=== PATIENT | female | born 1940 | race Caucasian/White ===

== ENCOUNTER 2017-07-18 13:53 | Emergency (ER) | payer MEDICARE ==
[2017-07-18 14:15] VITALS: BP 124/46
--- NOTE | 2017-07-18 14:34 | ER Document Report ---
ED General - General Chief Complaint: Altered Mental Status Stated Complaint: ALTERED MENTAL STATUS Time Seen by Provider: 07/18/17 14:26 Mode of Arrival: Medic Information source: Patient Notes: This is a 76-year-old female who is a poor historian brought in by EMS after found wandering. Patient is tearful but has no complaints. She is alert but does appear confused. Further history was given by patient's daughter who eventually came to the ER: Patient does have a history of stroke in the past and does have a history of dementia and is at her baseline mental status TRAVEL OUTSIDE OF THE [place] IN LAST 30 DAYS: No - HPI Onset: Just prior to arrival Onset/Duration: Sudden Quality of pain: No pain Severity: None Pain Level: Denies Associated symptoms: None. denies: Fever, Shortness of breath Exacerbated by: Denies Relieved by: Denies Similar symptoms previously: No Recently seen / treated by doctor: No - Related Data Allergies/Adverse Reactions: No Known Allergies Allergy (Verified 11/14/13 10:46) Past Medical History - General Information source: Patient - Social History Smoking Status: Never Smoker Cigarette use (# per day): No Chew tobacco use (# tins/day): No Frequency of alcohol use: None Drug Abuse: None Lives with: Family Family History: Reviewed & Not Pertinent Patient has suicidal ideation: No Patient has homicidal ideation: No - Past Medical History Cardiac Medical History: Reports: Hx Hypercholesterolemia, Hx Hypertension Neurological Medical History: Reports: Hx Cerebrovascular Accident - november 14 2013 right side speech mentation Endocrine Medical History: Reports: Hx Diabetes Mellitus Type 2 Musculoskeltal Medical History: Reports Hx Arthritis, Reports Hx Muscle Spasm, Reports Hx Musculoskeletal Deformity Psychiatric Medical History: Denies: Hx Depression Past Surgical History: Reports: Hx Hysterectomy - Immunizations Immunizations up to date: Yes Hx Diphtheria, Pertussis, Tetanus Vaccination: Yes Hx Pneumococcal Vaccination: 11/23/13 Review of Systems - Review of Systems Constitutional: denies: Chills, Fever EENT: No symptoms reported Cardiovascular: No symptoms reported Respiratory: No symptoms reported Gastrointestinal: No symptoms reported Genitourinary: No symptoms reported Female Genitourinary: No symptoms reported Musculoskeletal: No symptoms reported Skin: No symptoms reported Hematologic/Lymphatic: No symptoms reported Neurological/Psychological: No symptoms reported Physical Exam - Vital signs Vitals: Temp Pulse Resp BP Pulse Ox 98.0 F 79 18 124/46 L 100 07/18/17 14:10 07/18/17 14:10 07/18/17 14:10 07/18/17 14:10 07/18/17 14:10 Notes: Physical exam: GENERAL: A 76-year-old female, alert, sitting up in stretcher, tearful, no acute distress HEAD: Atraumatic, normocephalic. EYES: Pupils equal round and reactive to light, extraocular movements intact, sclera anicteric, conjunctiva are normal. ENT: TMs normal, nares patent, oropharynx clear without exudates. Moist mucous membranes. NECK: Normal range of motion, supple without obvious mass or JVD. LUNGS: Breath sounds clear to auscultation bilaterally and equal. No wheezes rales or rhonchi. HEART: Regular rate and rhythm without murmurs, rubs or gallops. ABDOMEN: Soft, normoactive bowel sounds. No tenderness to palpation. No guarding, no rebound. No masses appreciated. EXTREMITIES: Normal range of motion, no pitting or edema. No clubbing or cyanosis. NEUROLOGICAL: Cranial nerves II through XII grossly intact. Normal speech, moving all extremities. PSYCH: Tearful SKIN: Warm, Dry, normal turgor, no rashes or lesions noted. Course - Re-evaluation Re-evalutation: 07/18/17 22:18 As discussed, the patient is at her baseline mental status. She does have evidence of UTI and we will place her on some oral Keflex. - Vital Signs Vital signs: Temp Pulse Resp BP Pulse Ox 98.0 F 79 18 124/46 L 100 07/18/17 14:10 07/18/17 14:10 07/18/17 14:10 07/18/17 14:10 07/18/17 14:10 - Laboratory Result Diagrams: 07/18/17 14:50 07/18/17 14:50 Laboratory results interpreted by me: 07/18/17 07/18/17 07/18/17 14:03 14:50 14:50 WBC 12.7 H RBC 3.64 L MCV 113 H MCH 37.4 H RDW 16.8 H Plt Count 476 H Seg Neuts % (Manual) 80 H Abs Neuts (Manual) 10.2 H Potassium 5.5 H BUN 39 H Est GFR ( Amer) 53 L Est GFR (Non-Af Amer) 44 L ALT 55 H Ur Leukocyte Esterase LARGE H - EKG Interpretation by Me Rate: Normal Rhythm: NSR - EKG shows normal sinus rhythm with a ventricular rate of 80, no acute ST-T wave changes Discharge - Discharge Clinical Impression: UTI Condition: Stable Disposition: HOME, SELF-CARE Instructions: Urinary Tract Infection ([facility]) Additional Instructions: Recommendations: Encourage fluids for the next 2 days, continue current medicines. See the instruction sheets on UTI: Take the Keflex as prescribed. Follow-up with your doctor in the next 5 days. Her into the ER for any problems. Prescriptions: Cephalexin Monohydrate [Keflex 500 mg Capsule] 500 mg PO QID #20 capsule Referrals: HEMALATHA KENDRICK MD [Primary Care Provider] - Follow up as needed
[2017-07-18 15:08] LABS: HEMATOCRIT 41.2 % (36.0-47.0); HEMOGLOBIN 13.6 g/dL (12.0-15.5); MEAN CORPUSCULAR HEMOGLOBIN 37.4 pg (27.0-33.4); MEAN CORPUSCULAR HGB CONC 33.1 g/dL (32.0-36.0); PLATELET COUNT 476 10^3/uL (150-450); RED BLOOD COUNT 3.64 10^6/uL (3.72-5.28); RED CELL DISTRIBUTION WIDTH 16.8 % (11.5-14.0); WHITE BLOOD COUNT 12.7 10^3/uL (4.0-10.5)
[2017-07-18 15:12] LABS: MEAN CORPUSCULAR VOLUME 113 fl (80-97)
[2017-07-18 15:31] LABS: ABSOLUTE LYMPHOCYTES# (MANUAL) 1.7 10^3/uL (0.5-4.7); ABSOLUTE MONOCYTES # (MANUAL) 0.5 10^3/uL (0.1-1.4); ABSOLUTE NEUTROPHILS# (MANUAL) 10.2 10^3/uL (1.7-8.2); ALANINE AMINOTRANSFERASE 55 U/L (9-52); ALBUMIN 4.4 g/dL (3.5-5.0); ALKALINE PHOSPHATASE 96 U/L (38-126); ANION GAP 12 (5-19); ASPARTATE AMINO TRANSFERASE 29 U/L (14-36); BASOPHILS % (MANUAL) 1 % (0-2); BILIRUBIN,DIRECT 0.1 mg/dL (0.0-0.4); BILIRUBIN,TOTAL 0.5 mg/dL (0.2-1.3); BLOOD UREA NITROGEN 39 mg/dL (7-20); CALCIUM 9.7 mg/dL (8.4-10.2); CARBON DIOXIDE 22 mmol/L (22-30); CHLORIDE 105 mmol/L (98-107); EOSINOPHILS % (MANUAL) 2 % (0-6); GLUCOSE 101 mg/dL (75-110); LYMPHOCYTES % (MANUAL) 13 % (13-45); MONOCYTES % (MANUAL) 4 % (3-13); PLATELET CLUMPS PRESENT; POTASSIUM 5.5 mmol/L (3.6-5.0); SEGMENTED NEUTROPHILS % (MAN) 80 % (42-78); SODIUM 138.9 mmol/L (137-145); TOTAL CELLS COUNTED 100; TOTAL PROTEIN 6.5 g/dL (6.3-8.2); TOXIC GRANULATION SLIGHT
[2017-07-18 15:32] LABS: HYPERSEGMENTED NEUTROPHILS PRESENT; OVALOCYTES 1+; POIKILOCYTOSIS 1+
[2017-07-18 15:45] LABS: APPEARANCE,URINE SLIGHTLY-CLOUDY; BILIRUBIN,URINE NEGATIVE (NEGATIVE); COLOR,URINE YELLOW; GLUCOSE, URINE NEGATIVE (NEGATIVE); KETONES,URINE NEGATIVE (NEGATIVE); LEUKOCYTE ESTERASE,URINE LARGE (NEGATIVE); NITRITE,URINE NEGATIVE (NEGATIVE); PROTEIN,URINE NEGATIVE (NEGATIVE); URINE SPECIFIC GRAVITY 1.012; UROBILINOGEN,URINE NEGATIVE mg/dL (<2.0)
--- NOTE | 2017-07-18 19:23 | EKG REPORT ---
SEVERITY:- ABNORMAL ECG - SINUS RHYTHM IRBBB AND LPFB : Confirmed by: Sunshine Garcia 18-Jul-2017 19:22:02
[2017-07-19 15:26] LABS: PATH REVIEW PATHOLOGIST REVIEWED
== END 2017-07-18 16:44 | disposition home or self-care (01) ==
LOC: ER 13:53
DX: N39.0 Urinary tract infection, site not specified (principal); I10 Essential (primary) hypertension; E11.9 Type 2 diabetes mellitus without complications
CPT/HCPCS: 36415; 80053; 81001; 84443; 85025; 87086; 87088; 87186; 93005; 93010; 99285